=== PATIENT | female | born 1995 | race Caucasian/White ===

== ENCOUNTER 2021-10-26 22:30 | Emergency (ER) | payer OTHER ==
[~2021-10-26] VITALS: Ht 165.1 cm; Wt 61.2 kg
[~2021-10-26 22:30] MED LIST: CLONAZEPAM0.5 M1; ZOLOFT50 MG
== END 2021-10-27 04:29 ==
LOC: ER 22:30
DX: O20.9 Hemorrhage in early pregnancy, unspecified (principal); Z3A.01 Less than 8 weeks gestation of pregnancy

== ENCOUNTER 2021-12-22 09:04 | Emergency (ER) | payer OTHER ==
[~2021-12-22] VITALS: Ht 172.7 cm; Wt 77.6 kg
[2021-12-22] MEDS ORDERED: ATABEX OB TABL1 EACH PO (09:17)
== END 2021-12-22 14:33 | disposition home or self-care (01) ==
LOC: ER 09:04
DX: O21.9 Vomiting of pregnancy, unspecified (principal); Z3A.14 14 weeks gestation of pregnancy

== ENCOUNTER 2022-02-18 12:43 | Emergency (ER) | payer OTHER ==
[~2022-02-18] VITALS: Ht 172.7 cm; Wt 81.6 kg
[~2022-02-18 12:43] MED LIST changes: +ATABEX OB TABL1 EACH PO
[2022-02-18] MEDS ORDERED: NIFEDIPINE ER30 M1 PO (13:07)
== END 2022-02-18 18:32 | disposition home or self-care (01) ==
LOC: ER 12:43
DX: R11.2 Nausea with vomiting, unspecified (principal); Z88.0 Allergy status to penicillin; Z88.2 Allergy status to sulfonamides

== ENCOUNTER 2022-06-01 07:30 | Inpatient (IN) | payer OTHER ==
[~2022-06-01] VITALS: Ht 172.7 cm; Wt 2.3 kg
[~2022-06-01 07:30] MED LIST changes: +NIFEDIPINE ER30 M1 PO
[2022-06-05] MEDS ORDERED: VALACYCLOVIR500 MG PO (05:45)
[2022-06-05] MEDS ORDERED: INTEGRA PLUS C1 EAC1 PO (05:46)
[2022-06-05] MEDS ORDERED: OCUVITE LUTEIN1 EAC2 PO (05:48)
== END 2022-06-07 15:18 | disposition home or self-care (01) | DRG 788 ==
LOC: O/R 06-05 04:09 → LDR 06-05 04:09 → OB/GYN 06-05 04:09 → O/R 06-05 07:55 → OB/GYN 06-05 10:49
PROVIDERS: ADMIT Specialist; ATTEND Specialist
PROC: 4A1HXCZ Monitoring of Products of Conception, Cardiac Rate, External Approach (ICD-10-PCS; 2022-06-05)
PROC: 10D00Z1 Extraction of Products of Conception, Low, Open Approach (ICD-10-PCS; principal; 2022-06-05 09:45)
DX: O82 Encounter for cesarean delivery without indication (principal); Z3A.37 37 weeks gestation of pregnancy; Z37.0 Single live birth; Z20.822 Contact with and (suspected) exposure to COVID-19